=== PATIENT | male | born 1955 | race Caucasian/White ===

== ENCOUNTER 2021-02-05 20:30 | Observation (INO) | payer SELFPAY ==
[~2021-02-05] VITALS: Ht 160 cm; Wt 61.3 kg
[2021-02-05 21:14] LABS: BASO # 0.1 x10^3/uL (0.0-0.2); BASO % 1 % (0-3); EOS # 0.5 x10^3/uL (0.0-0.7); EOS % 5 % (0-3); HEMATOCRIT 27.7 % (39.0-53.0); HEMOGLOBIN 9.3 g/dL (13.0-17.5); LYMPH # 2.4 x10^3/uL (1.0-4.8); LYMPH % 26 % (24-48); MEAN CORPUSCULAR HEMOGLOBIN 31 pg (25-35); MEAN CORPUSCULAR HGB CONC 34 g/dL (31-37); MEAN CORPUSCULAR VOLUME 94 fL (79-100); MONO # 0.9 x10^3/uL (0.0-1.1); MONO % 9 % (0-9); NEUT # 5.5 x10^3/uL (1.8-7.7); NEUT % 59 % (31-73); PLATELET COUNT 250 x10^3/uL (140-400); RED BLOOD COUNT 2.96 x10^6/uL (4.30-5.70); WHITE BLOOD COUNT 9.3 x10^3/uL (4.0-11.0)
[2021-02-05 21:23] LABS: CALCIUM 8.2 mg/dL (8.5-10.1); CREATININE 0.7 mg/dL (0.7-1.3); GFR 113.2; POTASSIUM 4.8 mmol/L (3.5-5.1)
[2021-02-05 21:29] LABS: ALBUMIN/GLOBULIN RATIO 1.2 (1.0-1.7); MAGNESIUM 2.3 mg/dL (1.8-2.4); TOTAL BILIRUBIN 0.3 mg/dL (0.2-1.0); TOTAL PROTEIN 5.6 g/dL (6.4-8.2)
[2021-02-05] MEDS ORDERED: IV NORMAL SALINE 1000ML BAG 1,000 ML IV SCH (21:30)
[2021-02-05 21:32] LABS: % BANDS 16 % (0-9); % EOS 2 % (0-5); % LYMPHS 33 % (24-48); % MONOS 6 % (0-10); % SEGS 43 % (35-66); NUCLEATED RBC 5; PLT ESTIMATE ADEQUATE (ADEQUATE)
[2021-02-05 22:02] LABS: BILIRUBIN,URINE NEGATIVE (NEG); CLARITY,URINE CLEAR; COLOR,URINE YELLOW; NITRITE,URINE NEGATIVE (NEG); PROTEIN,URINE NEGATIVE (NEG-TRACE)
[2021-02-05 22:09] LABS: BACTERIA,URINE 0 /HPF (0-FEW); RBC,URINE 0 /HPF (0-2); WBC,URINE 0 /HPF (0-4)
[2021-02-05] MEDS ORDERED: CONTRAST GIVEN. MC PRN (22:30)
[2021-02-05] MEDS ORDERED: IOHEXOL 350 MG/ML 100 ML VIAL. IV ONE (22:30)
--- NOTE | 2021-02-05 23:00 | RAD ---
Exam: CT of chest with contrast INDICATION: Chest pain TECHNIQUE: Sequential axial images through the chest obtained following the administration 100 mL of Omni 350 IV contrast. Sagittal and coronal reformatted images were reconstructed from the axial data and reviewed. 3-D reformatted images were reconstructed from the axial data and reviewed. Comparisons: Chest x-ray same day FINDINGS: Visualized portions of the thyroid are unremarkable. No enlarged mediastinal lymph nodes are identifi ed. Heart size is normal. No pericardial effusion. Mild coronary artery calcifications. Thoracic aorta massey s a normal course and caliber. Pulmonary artery is not enlarged. No pulmonary embolus identified with in the main, lobar or segmental pulmonary arteries. Airways are patent. Mild bronchial wall thickening is noted. No consolidation or pneumothorax. No rosi picious lung nodules. No pleural effusion or thickening. Visualized upper abdomen is unremarkable. Sclerotic heterogenous appearance of the osseous structures diffusely. IMPRESSION: 1. No pulmonary embolus identified within the main, lobar or segmental pulmonary arteries. 2. 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 Exposure: One or more of the following in the visualized dose reduction techniques were utilized for this examination: 1. Automated exposure control 2. Adjustment of the MA and/or KV according to patient size 3. Use of iterative of reconstructive technique Electronically signed by: Claudia Verma MD (02/05/2021 10:58 PM) [facility]
--- NOTE | 2021-02-05 23:01 | RAD ---
Exam: Chest one view INDICATION: Chest pain TECHNIQUE: Frontal view of the chest Comparisons: None FINDINGS: The cardiomediastinal silhouette and pulmonary vessels are within normal limits. The lung and pleural spaces are clear. IMPRESSION: No acute cardiopulmonary process. Electronically signed by: Claudia Verma MD (02/05/2021 10:58 PM) [facility]
--- NOTE | 2021-02-05 23:08 | PHYS DOC ---
Adult General Chief Complaint Chief Complaint: MULTIPLE COMPLAINTS HPI HPI Patient is a 65 year old male who denies any past medical history presenting the emergency department complaining of multiple complaints. Patient states about a week ago he started having mild intermittent back pain which then started to radiate into the left anterior chest. Patient states that he has since noted some bilateral lower extremity weakness and some pain rating down his back. Patient denies any associated nausea, vomiting, dizziness or lightheadedness. Patient denies any history of similar symptoms. States that symptoms are intermittent but generally constant throughout the day. No known aggravating or relieving factors. Review of Systems Review of Systems Constitutional: Denies fever or chills [] Eyes: Denies change in visual acuity, redness, or eye pain [] HENT: Denies nasal congestion or sore throat [] Respiratory: Denies cough or shortness of breath [] Cardiovascular: No additional information not addressed in HPI [] GI: Denies abdominal pain, nausea, vomiting, bloody stools or diarrhea [] : Denies dysuria or hematuria [] Musculoskeletal: Denies back pain or joint pain [] Integument: Denies rash or skin lesions [] Neurologic: Denies headache, focal weakness or sensory changes [] Endocrine: Denies polyuria or polydipsia [] All other systems were reviewed and found to be within normal limits, except as documented in this note. Current Medications Current Medications Current Medications Medications (Trade) Dose Ordered Sig/Aneta Start Time Stop Time Status Last Admin Dose Admin Info (CONTRAST GIVEN -- Rx MONITORING) 1 each PRN DAILY PRN 02/05/21 22:30 02/07/21 22:29 Iohexol (Omnipaque 350 Mg/ml) 100 ml 1X ONCE 02/05/21 22:30 02/05/21 22:31 DC 02/05/21 22:48 100 ML Sodium Chloride 1,000 ml @ 1,000 mls/hr Q1H 02/05/21 21:30 02/05/21 22:29 DC 02/05/21 21:54 1,000 MLS/HR Allergies Allergies Allergies Coded Allergies Type Severity Reaction Last Updated Verified No Known Drug Allergies 02/05/21 No Physical Exam Physical Exam Constitutional: Well developed, well nourished, no acute distress, non-toxic appearance. [] HENT: Normocephalic, atraumatic, bilateral external ears normal, oropharynx moist, no oral exudates, nose normal. [] Eyes: PERRLA, EOMI, conjunctiva normal, no discharge. [] Neck: Normal range of motion, no tenderness, supple, no stridor. [] Cardiovascular:Heart rate regular rhythm, no murmur [] Lungs & Thorax: Bilateral breath sounds clear to auscultation [] Abdomen: Bowel sounds normal, soft, no tenderness, no masses, no pulsatile masses. [] Skin: Warm, dry, no erythema, no rash. [] Back: No tenderness, no CVA tenderness. [] Extremities: No tenderness, no cyanosis, no clubbing, ROM intact, no edema. [] Neurologic: Alert and oriented X 3, normal motor function, normal sensory function, no focal deficits noted. [] Psychologic: Affect normal, judgement normal, mood normal. [] Current Patient Data Lab Values Laboratory Tests Test 02/05/21 21:00 02/05/21 21:55 White Blood Count 9.3 x10^3/uL (4.0-11.0) Red Blood Count 2.96 x10^6/uL (4.30-5.70) L Hemoglobin 9.3 g/dL (13.0-17.5) L Hematocrit 27.7 % (39.0-53.0) L Mean Corpuscular Volume 94 fL (79-100) Mean Corpuscular Hemoglobin 31 pg (25-35) Mean Corpuscular Hemoglobin Concent 34 g/dL (31-37) Red Cell Distribution Width 17.0 % (11.5-14.5) H Platelet Count 250 x10^3/uL (140-400) Neutrophils (%) (Auto) 59 % (31-73) Lymphocytes (%) (Auto) 26 % (24-48) Monocytes (%) (Auto) 9 % (0-9) Eosinophils (%) (Auto) 5 % (0-3) H Basophils (%) (Auto) 1 % (0-3) Neutrophils # (Auto) 5.5 x10^3/uL (1.8-7.7) Lymphocytes # (Auto) 2.4 x10^3/uL (1.0-4.8) Monocytes # (Auto) 0.9 x10^3/uL (0.0-1.1) Eosinophils # (Auto) 0.5 x10^3/uL (0.0-0.7) Basophils # (Auto) 0.1 x10^3/uL (0.0-0.2) Segmented Neutrophils % 43 % (35-66) Band Neutrophils % 16 % (0-9) H Lymphocytes % 33 % (24-48) Monocytes % 6 % (0-10) Eosinophils % 2 % (0-5) Nucleated Red Blood Cells 5 Platelet Estimate Adequate (ADEQUATE) D-Dimer (Meagan) 5.74 ug/mlFEU (0.00-0.50) H Sodium Level 144 mmol/L (136-145) Potassium Level 4.8 mmol/L (3.5-5.1) Chloride Level 109 mmol/L (98-107) H Carbon Dioxide Level 26 mmol/L (21-32) Anion Gap 9 (6-14) Blood Urea Nitrogen 18 mg/dL (8-26) Creatinine 0.7 mg/dL (0.7-1.3) Estimated GFR (Cockcroft-Gault) 113.2 BUN/Creatinine Ratio 26 (6-20) H Glucose Level 129 mg/dL (70-99) H Calcium Level 8.2 mg/dL (8.5-10.1) L Magnesium Level 2.3 mg/dL (1.8-2.4) Total Bilirubin 0.3 mg/dL (0.2-1.0) Aspartate Amino Transferase (AST) 25 U/L (15-37) Alanine Aminotransferase (ALT) 20 U/L (16-63) Alkaline Phosphatase 510 U/L (46-116) H Troponin I Quantitative < 0.017 ng/mL (0.000-0.055) Total Protein 5.6 g/dL (6.4-8.2) L Albumin 3.0 g/dL (3.4-5.0) L Albumin/Globulin Ratio 1.2 (1.0-1.7) Lipase 100 U/L (73-393) Urine Collection Type Unknown Urine Color Yellow Urine Clarity Clear Urine pH 7.0 (<5.0-8.0) Urine Specific [place] 1.025 (1.000-1.030) Urine Protein Negative mg/dL (NEG-TRACE) Urine Glucose (UA) Negative mg/dL (NEG) Urine Ketones (Stick) Negative mg/dL (NEG) Urine Blood Negative (NEG) Urine Nitrite Negative (NEG) Urine Bilirubin Negative (NEG) Urine Urobilinogen Dipstick 2.0 mg/dL (0.2 mg/dL) Urine Leukocyte Esterase Negative (NEG) Urine RBC 0 /HPF (0-2) Urine WBC 0 /HPF (0-4) Urine Squamous Epithelial Cells Few /LPF Urine Bacteria 0 /HPF (0-FEW) Laboratory Tests 02/05/21 21:00 Laboratory Tests 02/05/21 21:00 EKG EKG [] Radiology/Procedures Radiology/Procedures Exam: CT of chest with contrast INDICATION: Chest pain TECHNIQUE: Sequential axial images through the chest obtained following the administration 100 mL of Omni 350 IV contrast. Sagittal and coronal reformatted images were reconstructed from the axial data and reviewed. 3-D reformatted images were reconstructed from the axial data and reviewed. Comparisons: Chest x-ray same day FINDINGS: Visualized portions of the thyroid are unremarkable. No enlarged mediastinal lymph nodes are identified. Heart size is normal. No pericardial effusion. Mild coronary artery calcifications. Thoracic aorta has a normal course and caliber. Pulmonary artery is not enlarged. No pulmonary embolus identified within the main, lobar or segmental pulmonary arteries. Airways are patent. Mild bronchial wall thickening is noted. No consolidation or pneumothorax. No suspicious lung nodules. No pleural effusion or thickening. Visualized upper abdomen is unremarkable. Sclerotic heterogenous appearance of the osseous structures diffusely. IMPRESSION: 1. No pulmonary embolus identified within the main, lobar or segmental pulmonary arteries. 2. 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 Exposure: One or more of the following in the visualized dose reduction techniques were utilized for this examination: 1. Automated exposure control 2. Adjustment of the MA and/or KV according to patient size 3. Use of iterative of reconstructive technique Electronically signed by: Claudia Verma MD (02/05/2021 10:58 PM) [facility] Course & Med Decision Making Course & Med Decision Making Pertinent Labs and Imaging studies reviewed. (See chart for details) 65m presented emergency department nonspecific back pain rating to the anterior chest no wax. Differential diagnosis at this time is broad but does include pulmonary embolism, ACS or less likely aortic dissection. Will obtain ACS work- up, obtain a D-dimer to evaluate and anticipate need for CT angiogram. 23:41 -CT scan without any evidence of pulmonary embolism or dissection however does demonstrate some punched-out lesions in the bones which raise concern for an acute metastatic malignancy. No history of malignancy according to the patient. At this time will admit the patient for ACS rule out but also anti cipate need for further evaluation and work-up for possible underlying malignant disease Dragon Disclaimer Dragon Disclaimer This electronic medical record was generated, in whole or in part, using a voice recognition dictation system. Departure Departure Impression: Primary Impression: Chest pain Disposition: ADMITTED INPATIENT Condition: STABLE SONDRA HAAS MD Feb 05, 2021 23:08
[2021-02-06] MEDS ORDERED: ONDANSETRON PF 4 MG/2 ML VIAL. IV PRN (01:45)
[2021-02-06] MEDS ORDERED: ACETAMINOPHEN 325 MG TABLET. PO PRN (01:45)
[2021-02-06] MEDS ORDERED: MAG HYDROX/ALUMINUM HYD/SIMETH 30 ML ORAL.SUSP PO PRN (01:45)
--- NOTE | 2021-02-06 01:53 | EKG ---
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
[2021-02-06 03:21] VITALS: BP 169/84
--- NOTE | 2021-02-06 03:30 | NUR ---
0251 Pt admission from ER to room 211. Pt transferred with steady gait in room. Hospital provided 2 way embroidery specialist phone was utilized to complete pt admission. merchandise stocker #[id number] was contacted. Pt admission questions as well as unit routines, plan of care and pt was given opportunity to ask questions through the embroidery specialist. Pt was informed the embroidery specialist phone could be used any time he needs or wants. Pt does complain of a small amount of R shoulder and back pain, prn tylenol was given. Items and call light in reach. ECG monitor and SCDs were applied to pt upon arrival to unit.
[2021-02-06 07:00] VITALS: BP 135/71
--- NOTE | 2021-02-06 07:21 | EKG ---
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
[2021-02-06] MEDS: MORPHINE SULFATE 2 MG/ML VIAL. IV PRN ×2 (08:48→12:26)
--- NOTE | 2021-02-06 09:10 | PDOC1 ---
History and Physical Date of Admission Date of Admission DATE: 02/06/21 TIME: 09:09 Identification/Chief Complaint Chief Complaint severe back pain, chest pain, weight loss History of Present Illness History of Present Illness 65 year old male who denies any past medical history presenting the emergency department complaining of multiple complaints. Patient states about a week ago he started having mild intermittent back pain which then started to radiate into the left anterior chest. Patient states that he has since noted some bilateral lower extremity weakness and some pain rating down his back. Patient denies any associated nausea, vomiting, dizziness or lightheadedness. Patient denies any history of similar symptoms. States that symptoms are intermittent but gene rally constant throughout the day. No known aggravating or relieving factors. cta chest Findings likely related to diffuse osseous metastatic disease, correlate with malignancy history. cardiology consulted labs SPIEP, UPIEP PENDING WELL SKELETAL SURVEY, PSA Family History Family History: Hypertension Social History Smoke: No ALCOHOL: none Drugs: None Current Problem List Problem List Problems Medical Problems: (1) Chest pain Status: Acute Current Medications Current Medications Current Medications Sodium Chloride 1,000 ml @ 1,000 mls/hr Q1H IV Last administered on 02/05/21at 21:54; Start 02/05/21 at 21:30; Stop 02/05/21 at 22:29; Status DC Iohexol (Omnipaque 350 Mg/ml) 100 ml 1X ONCE IV Last administered on 02/05/21at 22:48; Start 02/05/21 at 22:30; Stop 02/05/21 at 22:31; Status DC Info (CONTRAST GIVEN -- Rx MONITORING) 1 each PRN DAILY PRN MC SEE COMMENTS; Start 02/05/21 at 22:30; Stop 02/07/21 at 22:29 Ondansetron HCl (Zofran) 4 mg PRN Q4HRS PRN IV NAUSEA/VOMITING; Start 02/06/21 at 01:45 Acetaminophen (Tylenol) 650 mg PRN Q4HRS PRN PO TEMP OVER 100.4F OR MILD PAIN Last administered on 02/06/21at 03:26; Start 02/06/21 at 01:45 Al Hydroxide/Mg Hydroxide (Mylanta Plus Xs) 30 ml PRN DAILY PRN PO HEARTBURN / GAS; Start 02/06/21 at 01:45 Morphine Sulfate (Morphine Sulfate) 2 mg PRN Q2HR PRN IV PAIN Last administered on 02/06/21at 08:48; Start 02/06/21 at 01:45 Active Scripts Active Reported No Known Medications Prior To Admisstion (Info) Each 1 Each DAILY Allergies Allergies: Coded Allergies: No Known Drug Allergies (Unverified , 02/05/21) ROS Review of System Constitutional: Denies fever or chills [] Eyes: Denies change in visual acuity, redness, or eye pain [] HENT: Denies nasal congestion or sore throat [] Respiratory: Denies cough or shortness of breath [] Cardiovascular: No additional information not addressed in HPI [] GI: Denies abdominal pain, nausea, vomiting, bloody stools or diarrhea [] : Denies dysuria or hematuria [] Musculoskeletal: Denies back pain or joint pain [] Integument: Denies rash or skin lesions [] Neurologic: Denies headache, focal weakness or sensory changes [] Endocrine: Denies polyuria or polydipsia [] 14 PT systems were reviewed and found to be within normal limits, except as documented PSYCHOLOGICAL ROS: No: Anxiety, Behavioral Disorder, Concentration difficultie, Decreased libido, Depression, Disorientation, Hallucinations, Hostility, Irritablity, Memory difficulties, Mood Swings, Obsessive thoughts, Physical abuse, Sexual abuse, Sleep disturbances, Suicidal ideation, Other Breast: No New/Changing Breast Lumps, No Nipple changes, No Nipple discharge, No Other Respiratory: No: Cough, Hemoptysis, Orthopnea, Pleuritic Pain, Shortness of breath, SOB with excertion, Sputum Changes, Stridor, Tachypnea, Wheezing, Other Cardiovascular: yes Chest Pain; No Palpitations, No Orthopnea, No Paroxysmal Noc. Dyspnea, No Edema, No Lt Headedness, No Other Gastrointestinal: No Nausea, No Vomiting, No Abdominal Pain, No Diarrhea, No Constipation, No Melena, No Hematochezia, No Other Musculoskeletal: No Gait Disturbance, No Joint Pain, No Joint Stiffness, No Joint Swelling, No Muscle Pain, No Muscular Weakness, No Pain In:, No Swelling In:, No Other Neurological: No Behavorial Changes, No Bowel/Bladder ControlChng, No Confusion, No Dizziness, No Gait Disturbance, No Headaches, No Impaired Coord/balance, No Memory Loss, No Numbness/Tingling, No Seizures, No Speech Problems, No Tremors, No Visual Changes, No Weakness, No Other Skin: No Dry Skin, No Eczema, No Hair Changes, No Lumps, No Mole Changes, No Mottling, No Nail Changes, No Pruritus, No Rash, No Skin Lesion Changes, No Other, No Acne Physical Exam Physical Exam Constitutional: Denies fever or chills [] Eyes: Denies change in visual acuity, redness, or eye pain [] HENT: Denies nasal congestion or sore throat [] Respiratory: Denies cough or shortness of breath [] Cardiovascular: No additional information not addressed in HPI [] GI: Denies abdominal pain, nausea, vomiting, bloody stools or diarrhea [] : Denies dysuria or hematuria [] Musculoskeletal: Denies back pain or joint pain [] Integument: Denies rash or skin lesions [] Neurologic: Denies headache, focal weakness or sensory changes [] Endocrine: Denies polyuria or polydipsia [] 14 PT systems were reviewed and found to be within normal limits, except as documented in this note General: Alert, Oriented X3, Cooperative, No acute distress HEENT: Atraumatic, EOMI, Mucous membr. moist/pink Lungs: Clear to auscultation, Normal air movement Breasts: Not examined Abdomen: Normal bowel sounds, Soft Rectal Exam: not examined PELVIC: Examination not indicated Extremities: No cyanosis Skin: No significant lesion Neuro: Normal speech, Normal tone, Cranial nerves 3-12 NL Psych/Mental Status: Mental status NL, Mood NL Vitals Vitals Vital Signs Date Time Temp Pulse Resp B/P (MAP) Pulse Ox O2 Delivery O2 Flow Rate FiO2 02/06/21 08:48 96 Room Air 02/06/21 07:00 98.6 76 18 135/71 (92) 98.6 Labs Labs Laboratory Tests Test 02/05/21 21:00 02/05/21 21:55 02/06/21 00:30 02/06/21 07:35 White Blood Count 9.3 x10^3/uL (4.0-11.0) Red Blood Count 2.96 x10^6/uL (4.30-5.70) Hemoglobin 9.3 g/dL (13.0-17.5) Hematocrit 27.7 % (39.0-53.0) Mean Corpuscular Volume 94 fL (79-100) Mean Corpuscular Hemoglobin 31 pg (25-35) Mean Corpuscular Hemoglobin Concent 34 g/dL (31-37) Red Cell Distribution Width 17.0 % (11.5-14.5) Platelet Count 250 x10^3/uL (140-400) Neutrophils (%) (Auto) 59 % (31-73) Lymphocytes (%) (Auto) 26 % (24-48) Monocytes (%) (Auto) 9 % (0-9) Eosinophils (%) (Auto) 5 % (0-3) Basophils (%) (Auto) 1 % (0-3) Neutrophils # (Auto) 5.5 x10^3/uL (1.8-7.7) Lymphocytes # (Auto) 2.4 x10^3/uL (1.0-4.8) Monocytes # (Auto) 0.9 x10^3/uL (0.0-1.1) Eosinophils # (Auto) 0.5 x10^3/uL (0.0-0.7) Basophils # (Auto) 0.1 x10^3/uL (0.0-0.2) Segmented Neutrophils % 43 % (35-66) Band Neutrophils % 16 % (0-9) Lymphocytes % 33 % (24-48) Monocytes % 6 % (0-10) Eosinophils % 2 % (0-5) Nucleated Red Blood Cells 5 Platelet Estimate Adequate (ADEQUATE) D-Dimer (Meagan) 5.74 ug/mlFEU (0.00-0.50) Sodium Level 144 mmol/L (136-145) Potassium Level 4.8 mmol/L (3.5-5.1) Chloride Level 109 mmol/L (98-107) Carbon Dioxide Level 26 mmol/L (21-32) Anion Gap 9 (6-14) Blood Urea Nitrogen 18 mg/dL (8-26) Creatinine 0.7 mg/dL (0.7-1.3) Estimated GFR (Cockcroft-Gault) 113.2 BUN/Creatinine Ratio 26 (6-20) Glucose Level 129 mg/dL (70-99) Calcium Level 8.2 mg/dL (8.5-10.1) Magnesium Level 2.3 mg/dL (1.8-2.4) Total Bilirubin 0.3 mg/dL (0.2-1.0) Aspartate Amino Transf (AST/SGOT) 25 U/L (15-37) Alanine Aminotransferase (ALT/SGPT) 20 U/L (16-63) Alkaline Phosphatase 510 U/L (46-116) Troponin I Quantitative < 0.017 ng/mL (0.000-0.055) < 0.017 ng/mL (0.000-0.055) < 0.017 ng/mL (0.000-0.055) Total Protein 5.6 g/dL (6.4-8.2) Albumin 3.0 g/dL (3.4-5.0) Albumin/Globulin Ratio 1.2 (1.0-1.7) Lipase 100 U/L (73-393) Urine Collection Type Unknown Urine Color Yellow Urine Clarity Clear Urine pH 7.0 (<5.0-8.0) Urine Specific [place] 1.025 (1.000-1.030) Urine Protein Negative mg/dL (NEG-TRACE) Urine Glucose (UA) Negative mg/dL (NEG) Urine Ketones (Stick) Negative mg/dL (NEG) Urine Blood Negative (NEG) Urine Nitrite Negative (NEG) Urine Bilirubin Negative (NEG) Urine Urobilinogen Dipstick 2.0 mg/dL (0.2 mg/dL) Urine Leukocyte Esterase Negative (NEG) Urine RBC 0 /HPF (0-2) Urine WBC 0 /HPF (0-4) Urine Squamous Epithelial Cells Few /LPF Urine Bacteria 0 /HPF (0-FEW) Laboratory Tests Test 02/05/21 21:00 02/05/21 21:55 02/06/21 00:30 02/06/21 07:35 White Blood Count 9.3 x10^3/uL (4.0-11.0) Red Blood Count 2.96 x10^6/uL (4.30-5.70) Hemoglobin 9.3 g/dL (13.0-17.5) Hematocrit 27.7 % (39.0-53.0) Mean Corpuscular Volume 94 fL (79-100) Mean Corpuscular Hemoglobin 31 pg (25-35) Mean Corpuscular Hemoglobin Concent 34 g/dL (31-37) Red Cell Distribution Width 17.0 % (11.5-14.5) Platelet Count 250 x10^3/uL (140-400) Neutrophils (%) (Auto) 59 % (31-73) Lymphocytes (%) (Auto) 26 % (24-48) Monocytes (%) (Auto) 9 % (0-9) Eosinophils (%) (Auto) 5 % (0-3) Basophils (%) (Auto) 1 % (0-3) Neutrophils # (Auto) 5.5 x10^3/uL (1.8-7.7) Lymphocytes # (Auto) 2.4 x10^3/uL (1.0-4.8) Monocytes # (Auto) 0.9 x10^3/uL (0.0-1.1) Eosinophils # (Auto) 0.5 x10^3/uL (0.0-0.7) Basophils # (Auto) 0.1 x10^3/uL (0.0-0.2) Segmented Neutrophils % 43 % (35-66) Band Neutrophils % 16 % (0-9) Lymphocytes % 33 % (24-48) Monocytes % 6 % (0-10) Eosinophils % 2 % (0-5) Nucleated Red Blood Cells 5 Platelet Estimate Adequate (ADEQUATE) D-Dimer (Meagan) 5.74 ug/mlFEU (0.00-0.50) Sodium Level 144 mmol/L (136-145) Potassium Level 4.8 mmol/L (3.5-5.1) Chloride Level 109 mmol/L (98-107) Carbon Dioxide Level 26 mmol/L (21-32) Anion Gap 9 (6-14) Blood Urea Nitrogen 18 mg/dL (8-26) Creatinine 0.7 mg/dL (0.7-1.3) Estimated GFR (Cockcroft-Gault) 113.2 BUN/Creatinine Ratio 26 (6-20) Glucose Level 129 mg/dL (70-99) Calcium Level 8.2 mg/dL (8.5-10.1) Magnesium Level 2.3 mg/dL (1.8-2.4) Total Bilirubin 0.3 mg/dL (0.2-1.0) Aspartate Amino Transf (AST/SGOT) 25 U/L (15-37) Alanine Aminotransferase (ALT/SGPT) 20 U/L (16-63) Alkaline Phosphatase 510 U/L (46-116) Troponin I Quantitative < 0.017 ng/mL (0.000-0.055) < 0.017 ng/mL (0.000-0.055) < 0.017 ng/mL (0.000-0.055) Total Protein 5.6 g/dL (6.4-8.2) Albumin 3.0 g/dL (3.4-5.0) Albumin/Globulin Ratio 1.2 (1.0-1.7) Lipase 100 U/L (73-393) Urine Collection Type Unknown Urine Color Yellow Urine Clarity Clear Urine pH 7.0 (<5.0-8.0) Urine Specific [place] 1.025 (1.000-1.030) Urine Protein Negative mg/dL (NEG-TRACE) Urine Glucose (UA) Negative mg/dL (NEG) Urine Ketones (Stick) Negative mg/dL (NEG) Urine Blood Negative (NEG) Urine Nitrite Negative (NEG) Urine Bilirubin Negative (NEG) Urine Urobilinogen Dipstick 2.0 mg/dL (0.2 mg/dL) Urine Leukocyte Esterase Negative (NEG) Urine RBC 0 /HPF (0-2) Urine WBC 0 /HPF (0-4) Urine Squamous Epithelial Cells Few /LPF Urine Bacteria 0 /HPF (0-FEW) Images Images Exam: CT of chest with contrast INDICATION: Chest pain TECHNIQUE: Sequential axial images through the chest obtained following the administration 100 mL of Omni 350 IV contrast. Sagittal and coronal reformatted images were reconstructed from the axial data and reviewed. 3-D reformatted images were reconstructed from the axial data and reviewed. Comparisons: Chest x-ray same day FINDINGS: Visualized portions of the thyroid are unremarkable. No enlarged mediastinal lymph nodes are identified. Heart size is normal. No pericardial effusion. Mild coronary artery calcifications. Thoracic aorta has a normal course and caliber. Pulmonary artery is not enlarged. No pulmonary embolus identified within the main, lobar or segmental pulmonary arteries. Airways are patent. Mild bronchial wall thickening is noted. No consolidation or pneumothorax. No suspicious lung nodules. No pleural effusion or thickening. Visualized upper abdomen is unremarkable. Sclerotic heterogenous appearance of the osseous structures diffusely. IMPRESSION: 1. No pulmonary embolus identified within the main, lobar or segmental pulmonary arteries. 2. 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 Exposure: One or more of the following in the visualized dose reduction techniques were utilized for this examination: 1. Automated exposure control 2. Adjustment of the MA and/or KV according to patient size 3. Use of iterative of reconstructive technique Electronically signed by: Claudia Hadley MD (02/05/2021 10:58 PM) [facility] DICTATED and SIGNED BY: CLAUDIA HADLEY MD DATE: 02/05/21 [id number] VTE Prophylaxis Ordered VTE Prophylaxis Devices: Yes VTE Pharmacological Prophylaxi: Yes Assessment/Plan Assessment/Plan Impression: Chest pain, atypical features No pulmonary embolus identified within the main, lobar or segmental pulmonary arteries. 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 ADMITTED cvc bed trend troponin SKELETAL SURVEY Cardiology consult cvc bed echo metastatic work up needed PSA SHANICE GUTIERREZ IMMUNOGLOBULINS D/W FAMILY IN ROOM Justifications for Admission Chest Pain Indications Serious Diagnosis?: Yes Justification for admission: Chest pain may be indicative of potentially serious diagnosis/diagnoses Please state condition(s) which will require inpatient level of care for further evaluation and management. Other Justification SHADY ALFORD MD Feb 06, 2021 09:10
[2021-02-06 11:44] VITALS: BP 129/63
[2021-02-06 15:00] VITALS: BP 124/61
[2021-02-06 19:20] VITALS: BP 139/65
[2021-02-06 22:55] VITALS: BP 133/65
[2021-02-07 03:20] VITALS: BP 130/69
[2021-02-07 07:00] VITALS: BP 122/66
--- NOTE | 2021-02-07 07:55 | PDOC ---
[employer] PROGRESS NOTE Date of Service DOS: DATE: 02/07/21 TIME: 07:53 Chief Complaint Chief Complaint A/P: Chest pain, atypical features - ruled out [place]. No pulmonary embolus identified within the main, lobar or segmental pulmonary arteries. 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 Abnormal weight loss History of Present Illness History of Present Illness Mr Márquez is a 65 year old male with no past medical history presenting the emergency department complaining of multiple complaints. Patient states about a week ago he started having mild intermittent back pain which then started to radiate into the left anterior chest. Patient states that he has since noted some bilateral lower extremity weakness and some pain rating down his back. Patient denies any associated nausea, vomiting, dizziness or lightheadedness. Patient denies any history of similar symptoms. States that symptoms are intermittent but generally constant throughout the day. No known aggravating or relieving factors. EKG with no acute findings. 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 Alkaline phosphatase 510 Troponin x3 -. On further review of systems he notes about 45 pound weight loss over the past 3 months. While starting to discuss test results his and daughter stopped me and asked not to mention any type of possible cancer diagnosis. They note no history of TB exposure and note he emigrated from [place] 25 years ago and has been residing in the [place] with his family. I asked the patient if he would like me to privately discuss potential diagnosis with his family and he said yes that is fine he does not need to know he trusts his daughter and his . After that I took his and daughter aside and discussed with them the likelihood that this is potentially metastatic cancer or multiple myeloma and needs urgent follow up with an oncologist. SPEP UPEP light chains and skeletal survey performed. Patient's pain was completely resolved with morphine. He had family note that he would like to go home and have outpatient oncology referral for bone marrow biopsy and to discuss further treatment plans. Given referral to Dr. Huerta outpatient. I have discussed with the chef de cuisine, [employer] [id number]. Vitals/I&O Vitals/I&O: Vital Signs Date Time Temp Pulse Resp B/P (MAP) Pulse Ox O2 Delivery O2 Flow Rate FiO2 02/07/21 03:20 98.3 80 16 130/69 (89) 92 Room Air 98.3 I & O 02/06/21 02/06/21 02/07/21 15:00 23:00 07:00 Intake Total 0 ml 60 ml 100 ml Output Total 400 ml 300 ml 450 ml Balance -400 ml -240 ml -350 ml Physical Exam General: Alert, Oriented X3, Cooperative, No acute distress Abdomen: Normal bowel sounds, Soft Extremities: No cyanosis Skin: No significant lesion Labs Labs: Laboratory Tests Test 02/07/21 03:50 C-Reactive Protein, Quantitative 11.1 mg/L (0-3.3) Assessment and Plan Assessmemt and Plan Problems Medical Problems: (1) Chest pain Status: Acute Goals of Care: Advance Care Planning: Total time spent [id number] with patient greater than 16 minutes in discussion with goals of care, comfort care, end-of-life care, pain management, code status Comment Review of Relevant I have reviewed the following items binh (where applicable) has been applied. Justifications for Admission Chest Pain Indications Serious Diagnosis?: Yes Justification for admission: Chest pain may be indicative of potentially serious diagnosis/diagnoses Please state condition(s) which will require inpatient level of care for further evaluation and management. Other Justification SANCHO SNYDER MD Feb 07, 2021 07:55
[2021-02-07 11:00] VITALS: BP 107/55
[2021-02-07 11:36] LABS: BASO % 0 % (0-3); EOS # 0.3 x10^3/uL (0.0-0.7); EOS % 5 % (0-3); HEMATOCRIT 27.3 % (39.0-53.0); HEMOGLOBIN 9.1 g/dL (13.0-17.5); LYMPH # 2.1 x10^3/uL (1.0-4.8); LYMPH % 32 % (24-48); MEAN CORPUSCULAR HEMOGLOBIN 32 pg (25-35); MEAN CORPUSCULAR HGB CONC 33 g/dL (31-37); MEAN CORPUSCULAR VOLUME 96 fL (79-100); MONO # 0.8 x10^3/uL (0.0-1.1); MONO % 13 % (0-9); NEUT # 3.2 x10^3/uL (1.8-7.7); NEUT % 50 % (31-73); PLATELET COUNT 239 x10^3/uL (140-400); RED BLOOD COUNT 2.86 x10^6/uL (4.30-5.70); RED CELL DISTRIBUTION WIDTH 17.1 % (11.5-14.5); WHITE BLOOD COUNT 6.4 x10^3/uL (4.0-11.0)
[2021-02-07 11:41] LABS: ALBUMIN 2.6 g/dL (3.4-5.0); ALBUMIN/GLOBULIN RATIO 0.8 (1.0-1.7); CALCIUM 8.2 mg/dL (8.5-10.1); CREATININE 0.6 mg/dL (0.7-1.3); GFR 135.2; POTASSIUM 4.2 mmol/L (3.5-5.1); TOTAL BILIRUBIN 0.5 mg/dL (0.2-1.0); TOTAL PROTEIN 5.7 g/dL (6.4-8.2)
--- NOTE | 2021-02-07 13:24 | RAD ---
Skeletal survey 02/07/2021 Clinical history: Patient had a CT scan of the chest two days ago which demonstrated lytic and blasti c lesions throughout the visualized bony structures concerning for skeletal metastatic disease. A PA digital radiograph of the chest, AP digital radiograph of the pelvis, AP and lateral digital rad iographs of the skull to include the cervical spine, AP digital radiographs of the left and right hum erus, 2 AP digital radiographs of the left and right femur, and AP and lateral digital radiographs of the thoracic and lumbar spine were obtained as part of a skeletal survey. Findings: Comparison is made to patient's CTA of the chest dated 02/05/2021. The cardiac and mediastinal silhouettes are within normal limits in size and configuration. No pulmon danii infiltrate is seen. No pleural effusion or pneumothorax is noted. No lytic or blastic lesion is seen involving the skull. The patient is edentulous. Patchy sclerotic and lytic areas are seen throughout the thoracic and lumbosacral spine along with th e pelvis and proximal femurs which which have a similar appearance to the finding seen throughout the visualized bony structures patient's recent CTA. . These findings remain concerning for diffuse skel etal metastatic disease. No occult fracture is noted. Mild degenerative changes are seen involving both hips. Mild to moderate degenerative changes are seen involving both knees. Mild degenerative changes are seen involving bot h shoulders. IMPRESSION: Patchy sclerotic and lytic areas are seen throughout the thoracic and lumbosacral spine a long with pelvis and proximal femurs which remain concerning for skeletal metastatic disease. Electronically signed by: Jae Henry MD (02/07/2021 1:22 PM) [id number]
[2021-02-07] MEDS ORDERED: OXYC1TAB15 PO (13:45)
--- NOTE | 2021-02-07 13:51 | PDOC3 ---
Discharge Summary Visit Information Date of Admission: Feb 06, 2021 Date of Discharge: Feb 07, 2021 Admitting Diagnosis: Bony lesions, chest pain, back pain Final Diagnosis Problems Medical Problems: (1) Chest pain Status: Acute Brief Hospital Course Allergies Allergies Coded Allergies Type Severity Reaction Last Updated Verified No Known Drug Allergies 02/05/21 No Vital Signs Vital Signs Date Time Temp Pulse Resp B/P (MAP) Pulse Ox O2 Delivery O2 Flow Rate FiO2 02/07/21 11:00 98.9 74 16 107/55 (72) 94 Room Air 98.9 Lab Results Laboratory Tests Test 02/05/21 21:00 02/05/21 21:55 02/06/21 00:30 02/06/21 07:35 White Blood Count 9.3 x10^3/uL (4.0-11.0) Red Blood Count 2.96 x10^6/uL (4.30-5.70) Hemoglobin 9.3 g/dL (13.0-17.5) Hematocrit 27.7 % (39.0-53.0) Mean Corpuscular Volume 94 fL (79-100) Mean Corpuscular Hemoglobin 31 pg (25-35) Mean Corpuscular Hemoglobin Concent 34 g/dL (31-37) Red Cell Distribution Width 17.0 % (11.5-14.5) Platelet Count 250 x10^3/uL (140-400) Neutrophils (%) (Auto) 59 % (31-73) Lymphocytes (%) (Auto) 26 % (24-48) Monocytes (%) (Auto) 9 % (0-9) Eosinophils (%) (Auto) 5 % (0-3) Basophils (%) (Auto) 1 % (0-3) Neutrophils # (Auto) 5.5 x10^3/uL (1.8-7.7) Lymphocytes # (Auto) 2.4 x10^3/uL (1.0-4.8) Monocytes # (Auto) 0.9 x10^3/uL (0.0-1.1) Eosinophils # (Auto) 0.5 x10^3/uL (0.0-0.7) Basophils # (Auto) 0.1 x10^3/uL (0.0-0.2) Segmented Neutrophils % 43 % (35-66) Band Neutrophils % 16 % (0-9) Lymphocytes % 33 % (24-48) Monocytes % 6 % (0-10) Eosinophils % 2 % (0-5) Nucleated Red Blood Cells 5 Platelet Estimate Adequate (ADEQUATE) D-Dimer (Meagan) 5.74 ug/mlFEU (0.00-0.50) Sodium Level 144 mmol/L (136-145) Potassium Level 4.8 mmol/L (3.5-5.1) Chloride Level 109 mmol/L (98-107) Carbon Dioxide Level 26 mmol/L (21-32) Anion Gap 9 (6-14) Blood Urea Nitrogen 18 mg/dL (8-26) Creatinine 0.7 mg/dL (0.7-1.3) Estimated GFR (Cockcroft-Gault) 113.2 BUN/Creatinine Ratio 26 (6-20) Glucose Level 129 mg/dL (70-99) Calcium Level 8.2 mg/dL (8.5-10.1) Magnesium Level 2.3 mg/dL (1.8-2.4) Total Bilirubin 0.3 mg/dL (0.2-1.0) Aspartate Amino Transf (AST/SGOT) 25 U/L (15-37) Alanine Aminotransferase (ALT/SGPT) 20 U/L (16-63) Alkaline Phosphatase 510 U/L (46-116) Troponin I Quantitative < 0.017 ng/mL (0.000-0.055) < 0.017 ng/mL (0.000-0.055) < 0.017 ng/mL (0.000-0.055) Total Protein 5.6 g/dL (6.4-8.2) Albumin 3.0 g/dL (3.4-5.0) Albumin/Globulin Ratio 1.2 (1.0-1.7) Lipase 100 U/L (73-393) Urine Collection Type Unknown Urine Color Yellow Urine Clarity Clear Urine pH 7.0 (<5.0-8.0) Urine Specific Byron 1.025 (1.000-1.030) Urine Protein Negative mg/dL (NEG-TRACE) Urine Glucose (UA) Negative mg/dL (NEG) Urine Ketones (Stick) Negative mg/dL (NEG) Urine Blood Negative (NEG) Urine Nitrite Negative (NEG) Urine Bilirubin Negative (NEG) Urine Urobilinogen Dipstick 2.0 mg/dL (0.2 mg/dL) Urine Leukocyte Esterase Negative (NEG) Urine RBC 0 /HPF (0-2) Urine WBC 0 /HPF (0-4) Urine Squamous Epithelial Cells Few /LPF Urine Bacteria 0 /HPF (0-FEW) Test 02/07/21 03:50 White Blood Count 6.4 x10^3/uL (4.0-11.0) Red Blood Count 2.86 x10^6/uL (4.30-5.70) Hemoglobin 9.1 g/dL (13.0-17.5) Hematocrit 27.3 % (39.0-53.0) Mean Corpuscular Volume 96 fL (79-100) Mean Corpuscular Hemoglobin 32 pg (25-35) Mean Corpuscular Hemoglobin Concent 33 g/dL (31-37) Red Cell Distribution Width 17.1 % (11.5-14.5) Platelet Count 239 x10^3/uL (140-400) Neutrophils (%) (Auto) 50 % (31-73) Lymphocytes (%) (Auto) 32 % (24-48) Monocytes (%) (Auto) 13 % (0-9) Eosinophils (%) (Auto) 5 % (0-3) Basophils (%) (Auto) 0 % (0-3) Neutrophils # (Auto) 3.2 x10^3/uL (1.8-7.7) Lymphocytes # (Auto) 2.1 x10^3/uL (1.0-4.8) Monocytes # (Auto) 0.8 x10^3/uL (0.0-1.1) Eosinophils # (Auto) 0.3 x10^3/uL (0.0-0.7) Basophils # (Auto) 0.0 x10^3/uL (0.0-0.2) Sodium Level 141 mmol/L (136-145) Potassium Level 4.2 mmol/L (3.5-5.1) Chloride Level 107 mmol/L (98-107) Carbon Dioxide Level 26 mmol/L (21-32) Anion Gap 8 (6-14) Blood Urea Nitrogen 10 mg/dL (8-26) Creatinine 0.6 mg/dL (0.7-1.3) Estimated GFR (Cockcroft-Gault) 135.2 BUN/Creatinine Ratio 17 (6-20) Glucose Level 88 mg/dL (70-99) Calcium Level 8.2 mg/dL (8.5-10.1) Total Bilirubin 0.5 mg/dL (0.2-1.0) Aspartate Amino Transf (AST/SGOT) 22 U/L (15-37) Alanine Aminotransferase (ALT/SGPT) 16 U/L (16-63) Alkaline Phosphatase 485 U/L (46-116) C-Reactive Protein, Quantitative 11.1 mg/L (0-3.3) Total Protein 5.7 g/dL (6.4-8.2) Albumin 2.6 g/dL (3.4-5.0) Albumin/Globulin Ratio 0.8 (1.0-1.7) Laboratory Tests Test 02/07/21 03:50 White Blood Count 6.4 x10^3/uL (4.0-11.0) Red Blood Count 2.86 x10^6/uL (4.30-5.70) Hemoglobin 9.1 g/dL (13.0-17.5) Hematocrit 27.3 % (39.0-53.0) Mean Corpuscular Volume 96 fL (79-100) Mean Corpuscular Hemoglobin 32 pg (25-35) Mean Corpuscular Hemoglobin Concent 33 g/dL (31-37) Red Cell Distribution Width 17.1 % (11.5-14.5) Platelet Count 239 x10^3/uL (140-400) Neutrophils (%) (Auto) 50 % (31-73) Lymphocytes (%) (Auto) 32 % (24-48) Monocytes (%) (Auto) 13 % (0-9) Eosinophils (%) (Auto) 5 % (0-3) Basophils (%) (Auto) 0 % (0-3) Neutrophils # (Auto) 3.2 x10^3/uL (1.8-7.7) Lymphocytes # (Auto) 2.1 x10^3/uL (1.0-4.8) Monocytes # (Auto) 0.8 x10^3/uL (0.0-1.1) Eosinophils # (Auto) 0.3 x10^3/uL (0.0-0.7) Basophils # (Auto) 0.0 x10^3/uL (0.0-0.2) Sodium Level 141 mmol/L (136-145) Potassium Level 4.2 mmol/L (3.5-5.1) Chloride Level 107 mmol/L (98-107) Carbon Dioxide Level 26 mmol/L (21-32) Anion Gap 8 (6-14) Blood Urea Nitrogen 10 mg/dL (8-26) Creatinine 0.6 mg/dL (0.7-1.3) Estimated GFR (Cockcroft-Gault) 135.2 BUN/Creatinine Ratio 17 (6-20) Glucose Level 88 mg/dL (70-99) Calcium Level 8.2 mg/dL (8.5-10.1) Total Bilirubin 0.5 mg/dL (0.2-1.0) Aspartate Amino Transf (AST/SGOT) 22 U/L (15-37) Alanine Aminotransferase (ALT/SGPT) 16 U/L (16-63) Alkaline Phosphatase 485 U/L (46-116) C-Reactive Protein, Quantitative 11.1 mg/L (0-3.3) Total Protein 5.7 g/dL (6.4-8.2) Albumin 2.6 g/dL (3.4-5.0) Albumin/Globulin Ratio 0.8 (1.0-1.7) Brief Hospital Course Mr Márquez is a 65 year old male with no past medical history presenting the emergency department complaining of multiple complaints. Patient states about a week ago he started having mild intermittent back pain which then started to radiate into the left anterior chest. Patient states that he has since noted some bilateral lower extremity weakness and some pain rating down his back. Patient denies any associated nausea, vomiting, dizziness or lightheadedness. Patient denies any history of similar symptoms. States that symptoms are intermittent but generally constant throughout the day. No known aggravating or relieving factors. EKG with no acute findings. 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 Alkaline phosphatase 510 Troponin x3 -. On further review of systems he notes about 45 pound weight loss over the past 3 months. While starting to discuss test results his and daughter stopped me and asked not to mention any type of possible cancer diagnosis. They note no history of TB exposure and note he emigrated from [place] 25 years ago and has been residing [place] the [place] with his family. I asked the patient if he would like me to privately discuss potential diagnosis with his family and he said yes that is fine he does not need to know he trusts his daughter and his . After that I took his and daughter aside and discussed with them the likelihood that this is potentially metastatic cancer or multiple myeloma and needs urgent follow up with an oncologist. SPEP UPEP light chains and skeletal survey performed. Patient's pain was completely resolved with morphine. On review of systems his and he note occasionally he has a bulge in his left groin. On examination this is an easily reducible inguinal hernia. He had family note that he would like to go home and have outpatient oncology referral for bone marrow biopsy and to discuss further treatment plans. Given referral to Dr. Huerta outpatient. I have discussed with the gas tender, emanuel [id number]. Problem list: Chest pain, atypical features - ruled out AR. No pulmonary embolus identified within the main, lobar or segmental pulmonary arteries. 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 Abnormal weight loss Left groin hernia - easily reducible Greater than 30 minutes spent on d/c home with self care with his family. I have provided strict instructions for return. Discharge Information Condition at Discharge: Stable Follow Up: Weeks (1) Disposition/Orders: D/C to Home Scheduled Info (No Known Medications Prior To Admisstion) Each, 1 EACH [facility] DAILY for No home meds , (Reported) Entered as Reported by: MOSES MOJICA RN on 02/06/21233 Last Action: New Order on 02/06/21233 by MOSES MOJICA RN Scheduled PRN Oxycodone/Apap 5-325 (Percocet 5-325 Mg Tablet ) 1 Each Tablet, 1 TAB PO PRN BID PRN for PAIN MDD 2 Tablet(s) for 30 Days, #60 Ref 0 Prescribed by: SANCHO SNYDER MD on 02/07/21 1346 Justicifation of Admission Dx: Justifications for Admission: Justification of Admission Dx: Yes SANCHO SNYDER MD Feb 07, 2021 13:51
[2021-02-07 15:00] VITALS: BP 101/50
--- NOTE | 2021-02-07 15:26 | NUR ---
Discharge Note: JOSE JUAN CORADO VALPARAISO Discharge instructions and discharge home medications reviewed with Family Member and a copy given. All questions have been answered and understanding verbalized. The following instructions and handouts were given: follow up info, discharge instructions. Discontinued lines and drains: Peripheral IV intact. Patient discharged to Home or Self Care with Family Member via Wheelchair at 1526.
[2021-02-08 14:10] LABS: KAPPA FREE 15.4 mg/L (3.3-19.4); KAPPA LAMBDA RATIO 0.72 (0.26-1.65); LAMBDA FREE 21.5 mg/L (5.7-26.3)
[2021-02-09 11:13] LABS: ALPHA 1 0.3 g/dL (0.0-0.4); BETA 0.9 g/dL (0.7-1.3); GAMMA 0.4 g/dL (0.4-1.8); PROTEIN TOTAL 5.6 g/dL (6.0-8.5); SPEP AG RATIO 1.2 (0.7-1.7)
[2021-02-09 11:13] LABS: IMMUNOGLOBULIN A 64 mg/dL (61-437); IMMUNOGLOBULIN G 391 mg/dL (603-1613); IMMUNOGLOBULIN M 60 mg/dL (20-172)
[2021-02-09 12:13] LABS: ALBUMIN RAND UR 30.6 % (.); ALPHA 1 RAND UR 8.7 % (.); ALPHA 2 RAND UR 24.3 % (.); BETA RAND UR 25.7 % (.); GAMMA RAND UR 10.7 % (.); PROTEIN UR RAND 17.8 mg/dL (Not Estab.)
== END 2021-02-07 15:26 | disposition home or self-care (01) ==
LOC: ER 20:30 → 2 NORTH 02-06 01:08
PROVIDERS: ADMIT Internal Medicine; ATTEND Internal Medicine
DX: R07.89 Other chest pain (principal); M54.9 Dorsalgia, unspecified; R63.4 Abnormal weight loss; K40.90 Unilateral inguinal hernia, without obstruction or gangrene, not specified as recurrent; C79.51 Secondary malignant neoplasm of bone; Z68.23 Body mass index [BMI] 23.0-23.9, adult; Z98.890 Other specified postprocedural states; Z79.899 Other long term (current) drug therapy
CPT/HCPCS: 36415; 71045; 71275; 77074; 80053; 81001; 82784; 83520; 83690; 83735; 84165; 84166; 84445; 84484; 85007; 85025; 85379; 86140; 86334; 86335; 93005; 96361; 96374; 96375; 96376; 99285; G0103; G0378; J2270; J2405; J7030; Q9967; G0379

== ENCOUNTER 2021-02-17 07:00 | Outpatient (CLI) | payer SELFPAY ==
[~2021-02-17] VITALS: Ht 167.6 cm; Wt 65.8 kg
[2021-02-17] VITALS (8 sets, daily range): BP systolic 108–140; BP diastolic 62–72
[~2021-02-17 07:00] MED LIST: OXYC1TAB15 PO
[2021-02-17] MEDS ORDERED: LIDOCAINE WITH 8.4% SOD BICARB 3 ML DISP.SYRIN. ONE (07:53)
[2021-02-17] MEDS ORDERED: ACET325T9 PO (07:58)
[2021-02-17] MEDS ORDERED: MIDAZOLAM HCL/PF 2 MG/2 ML VIAL. ONE (08:08)
[2021-02-17] MEDS ORDERED: fentaNYL PF VIAL 100 MCG/2 ML VIAL ONE (08:08)
[2021-02-17] MEDS ORDERED: MIDAZOLAM HCL/PF 2 MG/2 ML VIAL. IV ONE (09:00)
[2021-02-17] MEDS ORDERED: fentaNYL PF VIAL 100 MCG/2 ML VIAL IV ONE (09:00)
[2021-02-17] MEDS ORDERED: LIDOCAINE WITH 8.4% SOD BICARB 3 ML DISP.SYRIN. IJ ONE (09:00)
--- NOTE | 2021-02-17 09:35 | RAD ---
CT-guided biopsy of sclerotic lesions in the left ilium 02/17/2021 7:30 AM Indication: Multifocal, sclerotic lesions throughout the skeleton with history of prostate cancer Discussion: The risks and benefits of the procedure, including but not limited to, bleeding and infection were discussed patient. Informed consent was obtained. The patient was brought to the CT scanner and placed in the prone position. A timeout procedure was performed. CT imaging of the pelvis is obtained demonstrating diffuse sclerotic lesions. Left ileum was targeted for biopsy. The overlying soft tissues were prepped and draped using maximum sterile barrier technique. 1% lidocaine without epinephrine was administered for local anesthesia. Under intermittent CT guidance, an OncControl needle was advanced into the bone marrow of the left iliac crest. Core biopsies were obtained and placed in formalin. Samples were delivered to pathology was present at the time of procedure. The needle was removed and manual pressure held to achieve hemostasis. No immediate complications were identified. The procedure was performed under conscious sedation including continuous cardiopulmonary monitoring via dedicated sedation nurse. Sedation time: 20 minutes Impression: Successful CT guided biopsy of sclerotic lesions in the left ilium PQRS Compliance Statement: One or more of the following individualized dose reduction techniques were utilized for this examination: 1. Automated exposure control 2. Adjustment of the mA and/or kV according to patient size 3. Use of iterative reconstruction technique
--- NOTE | 2021-02-17 09:56 | NUR ---
PIV removed. D/C instructions provided on site care/procedure, sedation. Patient's daughter at bedside to translate. Czech copy printed. \\ VS stable, no bleeding at access site. No questions from family or patient. All belongings taken w/ patient at time of d/c. Follow-up appt w/ Dr. Chilel scheduled for 02/26. Told to call w/ any questions/concerns between now and appt. Verbalized understanding.
--- NOTE | 2021-02-22 16:09 | PATHOLOGY ---
[facility] Accession Number: [id number] . 01 Material submitted: . bone - LEFT ILIUM BONE CORE. Modifiers: left . 01 Clinical history: . Multiple bony lesions, PSA >100 . . 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 . The results are conveyed to Dr. Mazariegos on 02/22/2021 at approximately 11:45. . ([facility]:mai; 02/22/2021) S 02/22/2021 1548 Local . 02 Comment: The case is seen in co-review with Dr. Vini Baker on 02/22/2021, who concurs with the above diagnosis. ([facility]:mai; 02/22/2021) . 02 Electronically signed: . Stalin Chacon MD, Pathologist NPI- [id number] . 01 Gross description: . The specimen is received in formalin, labeled "Willi, Albino, bone biopsy left ilium", and consists of 2 bony reyna tissue cores measuring up to 1.5 x less than 0.2 cm which are decalcified and entirely submitted in A1.([facility]; 02/17/2021) ANGIE/ANGIE 02/22/2021 1207 Local . 02 Microscopic: . Immunohistochemical stain results (probably controlled): . AE1/AE3 (A1) - Highlights malignant epithelial cells. CD10 - Highlights malignant epithelial cells. PSA (A1) - Rare apical reactivity in malignant epithelial cells. PSAP - Focal staining of malignant epithelial cells. CK7 - Negative. CK20 - Negative. TTF-1 - Negative. ([facility]:mai; 02/22/2021) . 02 Pathologist provided ICD-10: C41.4 . 02 CPT . 381266, [id number], [id number] Specimen Comment: A courtesy copy of this report has been sent to [phone], [phone] Specimen Comment: [id number] Specimen Comment: Report sent to DR MOCTEZUMA / DR MAZARIEGOS Performed at: 01 [facility] [address] [id number] MD Jamie Batres MD Phone: [phone] Performed at: 02 [facility] [address] [id number] MD Vini Baker MD Phone: [phone]
== END 2021-02-17 10:05 | disposition home or self-care (01) ==
LOC: INTRAD 07:00
PROVIDERS: ATTEND Internal Medicine Hematology & Oncology
DX: C41.4 Malignant neoplasm of pelvic bones, sacrum and coccyx (principal); I25.2 Old myocardial infarction; Z95.5 Presence of coronary angioplasty implant and graft; Z85.07 Personal history of malignant neoplasm of pancreas; Z79.899 Other long term (current) drug therapy; Z98.890 Other specified postprocedural states; Z85.46 Personal history of malignant neoplasm of prostate; Z20.822 Contact with and (suspected) exposure to COVID-19
CPT/HCPCS: 20225; 36415; 77012; 85610; 87426; 88307; 88341; 88342; 99152; J2250; J3010; J3490

== ENCOUNTER → 2021-02-19 | Outpatient (CLI) | payer OTHER ==
[2021-02-17 09:50] VITALS: BP 115/63
[~2021-02-19] MED LIST changes: +ACET325T9 PO
--- NOTE | 2021-02-19 12:28 | RAD ---
EXAM: Dual modality PET-CT Scan DATE: 01/23/2021 RADIOPHARMACEUTICAL: mCi F-18 fluorodeoxyglucose (FDG) IV. CLINICAL HISTORY: Prostate cancer staging. COMPARISON: Chest CT dated 02/05/2021. TECHNIQUE: Approximately 45 minutes after tracer administration, routine, attenuation-corrected Posit james Emission Tomography (PET) images were obtained from the level of the base of the skull through th e level of the mid thighs. Tomographic reconstructions are reviewed in coronal, transaxial and sagitt al planes. Non-contrast CT imaging was performed for attenuation correction and localization purpose s only. These images do not constitute a diagnostic-quality CT examination and were not used to diag nose disease independently of the PET images. The blood glucose level was 114 mg/dL at the time of FDG administration. *One or more of the following individualized dose reduction techniques were utilized for this examina tion: 1. Automated exposure control. 2. Adjustment of the mA and/or kV according to patient size. 3. Use of iterative reconstruction technique. FINDINGS: There is diffuse radiotracer avid osseous metastatic disease. There are innumerable lytic a nd sclerotic lesions throughout the axial and appendicular skeleton with heterogeneous increased radi otracer activity. The maximum associated with these lesions is seen within the lower lumbar spine rich suring 4.7. There is mild tracer activity within the prostate with an SUV of 3.2. However, intense tracer activit y within the bladder limits evaluation of the prostate. There is also increased tracer activity withi n pathologically enlarged left right internal iliac and pelvic sidewall lymph nodes, the largest of w hich measures 2.4 cm within SUV of 2.7. There is mild nonspecific radiotracer activity within a left hilar lymph node measuring 2.4, likely physiologic. The CT portion of the exam demonstrates diffuse mixed lytic and sclerotic osseous lesions throughout the appendicular and axial skeleton, consistent with osseous metastatic disease. There is a suspected subacute pathologic fracture with slight surrounding callus formation involving the inferior left pu bic ramus. No additional acute or subacute pathologic fracture is seen on this exam. There is expansi on of the cortex along the left paracentral to foraminal margin of the L3 vertebral body resulting in left lateral recess and foraminal stenosis. No severe spinal canal stenosis is seen related to metas tatic disease. There is heterogeneous enlargement of the prostate, measuring approximately 5.3 cm transaxially and 6 .4 cm craniocaudally. This deforms the left base of the bladder. There is surrounding fatty stranding and there are pathologically enlarged lymph nodes along the left greater than right pelvic sidewalls measuring up to 2.4 cm, consistent with metastatic disease. There is also slight wall thickening of the rectum and a 1.3 cm enlarged left lateral perirectal lymph node. There are nonspecific lymph node s within the retroperitoneum superior to the iliac bifurcation. These are not clearly pathologically enlarged. No hepatic lesion is seen. The gallbladder, pancreas and adrenal glands are unremarkable. There are b ilateral adrenal nodules, the attenuation which favors adenomas. No renal lesion is seen. There is no bowel obstruction. There is a small left inguinal hernia containing fat and a trace amount of fluid. There is mild pulmonary emphysema. There is bilateral posterior dependent and basilar atelectasis. Th ere are trace pleural effusions. There is cardiomegaly. There is coronary artery and aortic atheroscl erosis. The visualized portions of the brain are unremarkable. There is a mucous retention cyst or ai r-fluid level within the sphenoid sinus. There is no convincing neck lymphadenopathy. There is no med iastinal or hilar lymphadenopathy. IMPRESSION: 1. Diffuse osseous metastatic disease. There is associated diffuse increased radiotracer activity thr oughout the axial and appendicular skeleton with a maximum SUV of 4.7 within the lower lumbar spine. There is a subacute appearing likely pathologic fracture of the left inferior pubic ramus and there i s expansion of the posterior lateral cortex of L3 due to metastatic disease. No severe central canal stenosis or additional pathologic fracture is seen. 2. Heterogeneous enlarged prostate with mild tracer activity, consistent with known malignancy. This results in deformation of the bladder base and is associated with surrounding fatty stranding and lef t greater than right iliac chain and pelvic sidewall lymphadenopathy due to local metastatic disease. There is also mild wall thickening involving the rectum and enlarged left perirectal lymph node. The se findings can be better assessed with a prostate MRI. 3. No convincing suspicious lymph node superior to the iliac bifurcation. 4. Please refer to the above report for additional findings regarding the non-PET portion of the exam . Electronically signed by: Paula Chapman MD (02/19/2021 12:25 PM) [id number]
== END ==
LOC: PETSC 09:08
PROVIDERS: ATTEND Internal Medicine Hematology & Oncology
DX: C61 Malignant neoplasm of prostate (principal); N40.0 Benign prostatic hyperplasia without lower urinary tract symptoms; K40.90 Unilateral inguinal hernia, without obstruction or gangrene, not specified as recurrent
CPT/HCPCS: 78815; A9552

== ENCOUNTER → 2021-03-25 | Outpatient (CLI) | payer OTHER ==
[2021-02-17 09:50] VITALS: BP 115/63
[2021-03-25 14:35] LABS: BASO % 1 % (0-3); EOS # 0.2 x10^3/uL (0.0-0.7); EOS % 4 % (0-3); HEMATOCRIT 31.1 % (39.0-53.0); HEMOGLOBIN 10.2 g/dL (13.0-17.5); LYMPH % 36 % (24-48); MEAN CORPUSCULAR HEMOGLOBIN 32 pg (25-35); MEAN CORPUSCULAR HGB CONC 33 g/dL (31-37); MEAN CORPUSCULAR VOLUME 96 fL (79-100); MONO # 0.4 x10^3/uL (0.0-1.1); MONO % 8 % (0-9); NEUT # 2.8 x10^3/uL (1.8-7.7); NEUT % 52 % (31-73); PLATELET COUNT 226 x10^3/uL (140-400); RED BLOOD COUNT 3.24 x10^6/uL (4.30-5.70); RED CELL DISTRIBUTION WIDTH 18.3 % (11.5-14.5); WHITE BLOOD COUNT 5.5 x10^3/uL (4.0-11.0)
[2021-03-25 14:53] LABS: CALCIUM 8.6 mg/dL (8.5-10.1); CREATININE 0.6 mg/dL (0.7-1.3); GFR 135.2
[2021-03-25 14:54] LABS: POTASSIUM 4.4 mmol/L (3.5-5.1)
[2021-03-25 14:57] LABS: ALBUMIN 3.6 g/dL (3.4-5.0); ALBUMIN/GLOBULIN RATIO 1.3 (1.0-1.7); TOTAL BILIRUBIN 0.7 mg/dL (0.2-1.0); TOTAL PROTEIN 6.4 g/dL (6.4-8.2)
[2021-03-25 15:20] LABS: % BANDS 4 % (0-9); % EOS 4 % (0-5); % LYMPHS 32 % (24-48); % METAS 1 % (0-0); % MONOS 10 % (0-10); % MYELOS 3 % (0-0); % SEGS 46 % (35-66); ANISOCYTOSIS SLIGHT; NUCLEATED RBC 6; PLT ESTIMATE ADEQUATE (ADEQUATE); POIKILOCYTOSIS SLIGHT
[2021-03-25 15:21] LABS: OVALOCYTES OCC; POLYCHROMASIA SLIGHT; TEAR DROP CELLS FEW
[2021-03-25 15:22] LABS: SCHISTOCYTES OCC
== END ==
LOC: ONCLAB 13:27
PROVIDERS: ATTEND Internal Medicine Hematology & Oncology
DX: C61 Malignant neoplasm of prostate (principal)
CPT/HCPCS: 80053; 84153; 84154; 85007; 85025